=== PATIENT | female | born 1980 | race Caucasian/White ===

== ENCOUNTER 2018-02-24 11:14 | Emergency (ER) | payer OTHER, SELFPAY ==
[2018-02-24 13:57] LABS: Absolute Lymphocytes (CBC) 2.7 K/uL (0.7-4.9); Absolute Monocytes 0.5 K/uL (0.1-1.3); Absolute Neutrophil 6.5 K/uL (1.8-8.0); Basophils % 0.7 % (0-1.3); Eosinophils % 4.4 % (0-4.4); Hematocrit 40.6 % (36.0-45.0); Lymphocytes % 26.4 % (15.3-44.8); MCH 29.9 pg (27.0-35.0); MCV 88.1 fL (80-100); MPV 8.2 fL (7.6-11.3); Monocytes % 4.9 % (3.3-12.3)
[2018-02-24] MEDS ORDERED: KETOROLAC 30 MG/ML INJ ONE (14:06)
[2018-02-24 14:17] LABS: Albumin 3.2 g/dL (3.4-5.0); Bilirubin Direct 0.2 mg/dL (0-0.2); Bilirubin Total 0.5 mg/dL (0.2-1.0); Potassium 3.9 mmol/L (3.5-5.1); Protein, Total 7.7 g/dL (6.4-8.2)
--- NOTE | 2018-02-24 14:55 | ER ---
Nurse's Notes [facility] Name: Lary Velasquez Age: 37 yrs Sex: Female : 1980 Arrival Date: 02/24/2018 Time: 11:17 Bed 24 Private MD: Diagnosis: Generalized abdominal pain Presentation: 02/24 11:24 Presenting complaint: Patient states: "I'm having really sharp pains in my stomach its aj1 been going on for a couple of days" Reports RUQ and LUQ abdominal pain. Reports vomiting once a couple days ago,but has not vomiting since, denies diarrhea. Denies fever. Transition of care: patient was not received from another setting of care. Onset of symptoms was February 22, 2018. Risk Assessment: Do you want to hurt yourself or someone else? Patient reports no desire to harm self or others. Initial Sepsis Screen: Does the patient meet any 2 criteria? No. Patient's initial sepsis screen is negative. Does the patient have a suspected source of infection? Yes: Acute abdominal pain. Care prior to arrival: None. 11:24 Method Of Arrival: Ambulatory [facility] 11:24 Acuity: GIAN 3 aj1 Triage Assessment: 11:26 General: Appears in no apparent distress. uncomfortable, Behavior is calm, cooperative, aj1 appropriate for age. Pain: Complains of pain in right upper quadrant and left upper quadrant Pain currently is 10 out of 10 on a pain scale. Neuro: Level of Consciousness is awake, alert, obeys commands. Cardiovascular: Patient's skin is warm and dry. Respiratory: Airway is patent Respiratory effort is even, unlabored, Respiratory pattern is regular, symmetrical. GI: Reports upper abdominal pain. 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 - Social history:: Smoking status: Patient uses tobacco products, smokes one pack cigarettes per day. - Ebola Screening: : Patient denies travel to an Ebola-affected area in the 21 days before illness onset. Screenin:02 Abuse screen: Denies threats or abuse. Denies injuries from another. Nutritional aj1 screening: No deficits noted. Tuberculosis screening: No symptoms or risk factors identified. 15:00 Fall Risk None identified. aj1 Assessment: 14:02 General: Appears in no apparent distress. comfortable, Behavior is calm, cooperative, aj1 appropriate for age. Pain: Complains of pain in left upper quadrant and right upper quadrant. Neuro: Level of Consciousness is awake, alert, obeys commands. Cardiovascular: Patient's skin is warm and dry. Respiratory: Airway is patent Respiratory effort is even, unlabored, Respiratory pattern is regular, symmetrical. GI: Abdomen is non-distended, Bowel sounds present X 4 quads. Abd is soft and non tender X 4 quads. Reports vomiting, Patient currently denies diarrhea. : No signs and/or symptoms were reported regarding the genitourinary system. EENT: No signs and/or symptoms were reported regarding the EENT system. Derm: No signs and/or symptoms reported regarding the dermatologic system. Skin is pink, warm \\T\\ dry. normal. Musculoskeletal: No signs and/or symptoms reported regarding the musculoskeletal system. Circulation, motion, and sensation intact. 14:57 Reassessment: Patient states that she would like to leave now. Notified patient that we aj1 do not have her test results. Patient states that she knows, but she does not want to wait for them any longer. Patient was asked if she was unhappy with the care she received today, she said its not that shes unhappy with her care, she just does not want to wait any longer, and she will return if her pain gets worse. Vital Signs: 11:26 BP 136 / 63; Pulse 71; Resp 16; Temp 97.2; Pulse Ox 98% on R/A; Height 5 ft. 6 in. aj1 (167.64 cm); Pain 10/10; 14:02 BP 127 / 85; Pulse 76; Resp 18; Pulse Ox 97% on R/A; aj1 ED Course: 11:17 Patient arrived in ED. sb2 11:26 Triage completed. aj1 11:26 Arm band placed on Patient placed in waiting room, Patient notified of wait time. aj1 12:33 Kenneth Mancia MD is Attending Physician. francisco 12:34 Michela Olivas [facility]-C [facility]. kb 12:53 Wendy Fernandez, RN is Primary Nurse. aj1 14:02 Patient has correct armband on for positive identification. Bed in low position. Call aj1 light in reach. Side rails up X 1. 14:02 No provider procedures requiring assistance completed. aj1 14:05 Initial lab(s) drawn, by me, sent to lab. Inserted saline lock: 20 gauge in right aj1 antecubital area, using aseptic technique. Blood collected. 15:00 IV discontinued, intact, bleeding controlled, No redness/swelling at site. Pressure aj1 dressing applied. Administered Medications: 14:05 Drug: TORadol 30 mg Route: IVP; Site: right antecubital; aj1 15:05 Follow up: Response: No adverse reaction aj1 Outcome: 15:00 AMA AMA form signed aj1 15:00 Condition: stable 15:01 Patient left the ED. aj1 Signatures: Michela Olivas, PIZZA DELIVERY DRIVER-C PIZZA DELIVERY DRIVER-Wendy Graves, RN RN aj1 Kenneth Mancia MD MD cha Billeau, Sheri sb2
--- NOTE | 2018-02-24 14:55 | EDPHYS ---
Physician Documentation [facility] Name: Lary Velasquez Age: 37 yrs Sex: Female : 1980 Arrival Date: 02/24/2018 Time: 11:17 Bed 24 Private MD: ED Physician Kenneth Mancia HPI: 02/24 14:36 This 37 yrs old Female presents to ER via Ambulatory with complaints of kb Abdominal Pain. 14:36 The patient presents with abdominal pain that is diffuse. Onset: The symptoms/episode kb began/occurred 2 day(s) ago. The symptoms do not radiate. Associated signs and symptoms: none. The symptoms are described as constant. Modifying factors: The symptoms are alleviated by nothing, the symptoms are aggravated by pressure. Severity of pain: At its worst the pain was moderate in the emergency department the pain is unchanged. The patient has not experienced similar symptoms in the past. The patient has not recently seen a physician. 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 - Social history:: Smoking status: Patient uses tobacco products, smokes one pack cigarettes per day. - Ebola Screening: : Patient denies travel to an Ebola-affected area in the 21 days before illness onset. ROS: 14:36 Constitutional: Negative for fever, chills, and weight loss, Cardiovascular: Negative kb for chest pain, palpitations, and edema, Respiratory: Negative for shortness of breath, cough, wheezing, and pleuritic chest pain, Back: Negative for injury and pain, : Negative for injury, bleeding, discharge, and swelling, MS/Extremity: Negative for injury and deformity, Skin: Negative for injury, rash, and discoloration, Neuro: Negative for headache, weakness, numbness, tingling, and seizure. 14:36 Abdomen/GI: Positive for abdominal pain, Negative for nausea, vomiting, and diarrhea, constipation, abdominal cramps, abdominal distension, anorexia. Exam: 14:36 Constitutional: This is a well developed, well nourished patient who is awake, alert, kb and in no acute distress. Head/Face: Normocephalic, atraumatic. Neck: Trachea midline, no thyromegaly or masses palpated, and no cervical lymphadenopathy. Supple, full range of motion without nuchal rigidity, or vertebral point tenderness. No Meningismus. Chest/axilla: Normal chest wall appearance and motion. Nontender with no deformity. No lesions are appreciated. Cardiovascular: Regular rate and rhythm with a normal S1 and S2. No gallops, murmurs, or rubs. Normal PMI, no JVD. No pulse deficits. Respiratory: Lungs have equal breath sounds bilaterally, clear to auscultation and percussion. No rales, rhonchi or wheezes noted. No increased work of breathing, no retractions or nasal flaring. Back: No spinal tenderness. No costovertebral tenderness. Full range of motion. Skin: Warm, dry with normal turgor. Normal color with no rashes, no lesions, and no evidence of cellulitis. MS/ Extremity: Pulses equal, no cyanosis. Neurovascular intact. Full, normal range of motion. Neuro: Awake and alert, GCS 15, oriented to person, place, time, and situation. Cranial nerves II-XII grossly intact. Motor strength 5/5 in all extremities. Sensory grossly intact. Cerebellar exam normal. Normal gait. 14:36 Abdomen/GI: Inspection: abdomen appears normal, Bowel sounds: normal, in all quadrants, Palpation: soft, in all quadrants, nontender, in the left upper quadrant and left lower quadrant, mild abdominal tenderness, in the right lower quadrant, moderate abdominal tenderness, in the right upper quadrant. Vital Signs: 11:26 BP 136 / 63; Pulse 71; Resp 16; Temp 97.2; Pulse Ox 98% on R/A; Height 5 ft. 6 in. aj1 (167.64 cm); Pain 10/10; 14:02 BP 127 / 85; Pulse 76; Resp 18; Pulse Ox 97% on R/A; aj1 MDM: 12:33 Patient medically screened. francisco 14:38 Data reviewed: vital signs, nurses notes. Data interpreted: Pulse oximetry: on room air kb is 97 %. Interpretation: normal. 14:52 ED course: Pt does not want to wait for results. Would like to leave now. Pt educated kb on risks of leaving without completing diagnostic exams. Pt signed AMA form. . 12 12:38 Order name: Basic Metabolic Panel; Complete Time: 14:18 kb 02/24 12:38 Order name: CBC with Diff; Complete Time: 14:07 kb 02/24 12:38 Order name: Hepatic Function; Complete Time: 14:18 kb 02/24 12:38 Order name: Lipase; Complete Time: 14:18 kb 02/24 14:37 Order name: Urine Dipstick--Ancillary (enter results) bd 02/24 14:50 Order name: Urine --Ancillary (enter results) bd 02/24 12:38 Order name: IV Saline Lock; Complete Time: 13:54 kb 02/24 12:38 Order name: Labs collected and sent; Complete Time: 13:55 kb 02/24 12:38 Order name: Urine Dipstick-Ancillary (obtain specimen); Complete Time: 13:54 kb 02/24 12:38 Order name: Urine Test (obtain specimen); Complete Time: 13:54 kb Administered Medications: 14:05 Drug: TORadol 30 mg Route: IVP; Site: right antecubital; aj1 15:05 Follow up: Response: No adverse reaction aj1 Disposition: 02/25 07:39 Co-signature as Attending Physician, Kenneth Mancia MD I agree with the assessment and francisco plan of care. Disposition: 02/24/18 14:54 Patient has left against medical advice. Impression: Generalized abdominal pain. - Patients states they are going to Home. - Condition is Stable. Follow up: Emergency Department; When: As needed; Reason: Worsening of condition. Follow up: Private Physician; When: 2 - 3 days; Reason: Recheck today's complaints, Continuance of care, Re-evaluation by your physician. - Problem is new. - Symptoms are unchanged. Signatures: Dispatcher [employer] Michela Neville, WILNER MAGALLON-Wendy Graves RN RN aj1 Anderson, Corey, MD MD cha Corrections: (The following items were deleted from the chart) 02/24 15:01 14:54 02/24/2018 14:54 Patients has left against medical advice. Impression: aj1 Generalized abdominal pain. Patient states they are going to Home. Condition is Stable. Follow up: Emergency Department; When: As needed; Reason: Worsening of condition. Follow up: Private Physician; When: 2 - 3 days; Reason: Recheck today's complaints, Continuance of care, Re-evaluation by your physician. Problem is new. Symptoms are unchanged. kb
[2018-02-24 17:37] VITALS: TEMP 97.2
[2018-02-24 17:38] VITALS: BP 127/85; O2SAT 97
[2018-02-24 19:33] LABS: Urine Blood TRACE (NEG); Urine Glucose NEGATIVE (NEG); Urine Protein NEGATIVE (NEG); Urine Specific Gravity 1.015 (1.005-1.030)
[2018-02-24 19:33] LABS: Urine Specific Gravity 1.015 (1.005-1.030)
== END 2018-02-24 15:01 | disposition left against medical advice (07) ==
LOC: ER 11:14
DX: R10.84 Generalized abdominal pain (principal); F17.210 Nicotine dependence, cigarettes, uncomplicated
CPT/HCPCS: 36415; 80048; 80076; 81003; 81025; 83690; 85025; 96374; 99283